=== PATIENT | male | born 1995 | race Caucasian/White ===

== ENCOUNTER 2021-12-13 12:25 | Emergency (ER) | payer BC, OTHER ==
[~2021-12-13] VITALS: Ht 187.9 cm; Wt 96.6 kg
[2021-12-13 12:35] VITALS: BP 124/72
[2021-12-13] MEDS ORDERED: LIDOCAINE 1% INJ 20 ML VIAL INJ ONE (13:00)
[2021-12-13] MEDS ORDERED: TETANUS,DIPTH,PERTUSS P/F (BOOSTRIX) 0.5 ML VIAL IM ONE (13:00)
[2021-12-13] MEDS ORDERED: LIDOCAINE 1% INJ 50 ML (XYLOCAINE) VIAL ONE (13:16)
--- NOTE | 2021-12-13 13:36 | ED Head Injury ---
General Chief Complaint: Laceration Stated Complaint: [facility] Nursing Triage Note: Patient states a juan slipped and hit him on the chin. Small laceration present underneath chin. Source: patient Exam Limitations: no limitations History of Present Illness Date Seen by Provider: Dec 13, 2021 Time Seen by Provider: 12:42 Initial Comments 26-year-old male patient without history of medical problems states he had a chin laceration after a juan slipped and hit him on the chin. Patient denies loss of consciousness some other injuries and rated his pain as a very mild sherley n. Patient does not remember his last tetanus immunization. Allergies and Home Medications Allergies Coded Allergies: Penicillins (Verified Allergy, Unknown, 12/13/21) Patient Home Medication List Home Medication List Reviewed: Yes Review of Systems Review of Systems Constitutional: no symptoms reported Eyes: No Symptoms Reported Ears, Nose, Mouth, Throat: no symptoms reported Cardiovascular: no symptoms reported Gastrointestinal: no symptoms reported Genitourinary: no symptoms reported Musculoskeletal: no symptoms reported Skin: see HPI Psychiatric/Neurological: No Symptoms Reported All Other Systems Reviewed Negative Unless Noted: Yes Past Lpzlluz-Fdeyat-Oubiuz Hx Patient Social History Tobacco Use?: No Substance use?: No Alcohol Use?: No Pt feels they are or have been: No Physical Exam Vital Signs Vital Signs - First Documented 12/13/21 12:35 Temp 36.5 Pulse 62 Resp 16 B/P (MAP) 124/72 (89) Pulse Ox 96 O2 Delivery Room Air Capillary Refill : Less Than 3 Seconds Height, Weight, BMI Height: '" Weight: lbs. oz. kg; 27.00 BMI Method: General Appearance: WD/WN, no apparent distress HEENT: PERRL/EOMI, other (1.5 cm oblique under chin laceration) Neck: non-tender, full range of motion Cardiovascular: regular rate, rhythm, no edema, no gallop Respiratory: chest non-tender, lungs clear, normal breath sounds Extremities: normal inspection Psychiatric: alert, oriented x 3 Motor/Sensory: no motor deficit, no sensory deficit Skin: other (1.5 cm oblique and linear laceration up to subcutaneous fat tissue without active bleeding) Procedures/Interventions Wound Location: Face Other Wound Location Chin Wound Length (cm): 1.5 Wound's Depth, Shape: linear, sub Q Wound Explored: no foreign body removed Irrigated w/ Saline (ccs): 20 Betadine Prep?: No Anesthesia: 1% Lidocaine Volume Anesthetic (ccs): 4 Wound Debrided: None Suture: Prolene Suture Size: 5-0 Number of Sutures: 2 Sterile Dressing Applied?: No (Patient had gutierrez) Progress/Results/Core Measures Results/Orders My Orders Orders - ANTOINETTE IRENE MD Dipht,Pertuss(Acell),Tet Adult (Boostrix (12/13/21 13:00) Lidocaine 1% Inj 20 Ml (Xylocaine 1% Inj (12/13/21 13:00) Lidocaine 1% Inj 50 Ml (Xylocaine 1% Inj (12/13/21 13:16) Vital Signs/I&O 12/13/21 12:35 Temp 36.5 Pulse 62 Resp 16 B/P (MAP) 124/72 (89) Pulse Ox 96 O2 Delivery Room Air Blood Pressure Mean: 89 Progress Progress Note : Progress Note Evaluation of patient in ER showed 26-year-old male patient with a small laceration of under chin that was repaired with 2 sutures of 5-0 Prolene. Patient advised to take Tylenol and ibuprofen as needed for pain and suture removal in 5 to 7 days. Patient tolerated the procedure well. Departure Impression Primary Impression: Chin laceration Qualified Codes: S01.81XA - Laceration without foreign body of other part of head, initial encounter Disposition: 01 HOME, SELF-CARE Condition: Improved Departure-Patient Inst. Decision time for Depature: 13:35 Referrals: NO,LOCAL PHYSICIAN (PCP/Family) Primary Care Physician Patient Instructions: Wound Care (DC), Laceration Repair With Stitches ED Add. Discharge Instructions: Keep wound clean and dry May apply Neosporin ointment after 2 days Suture removal in 5 to 7 days May take [id number] Tylenol or ibuprofen as needed for pain All discharge instructions reviewed with patient and/or family. Voiced understa nding. ANTOINETTE IRENE MD Dec 13, 2021 13:36
== END 2021-12-13 13:50 | disposition home or self-care (01) ==
LOC: ER FS 12:28
DX: S01.81XA Laceration without foreign body of other part of head, initial encounter (principal); Z28.310 Unvaccinated for COVID-19; Z23 Encounter for immunization; W22.8XXA Striking against or struck by other objects, initial encounter
CPT/HCPCS: 12011; 90715